=== PATIENT | male | born 1950 | race Caucasian/White ===

== ENCOUNTER 2020-10-10 12:06 | Outpatient (CLI) | payer OTHER ==
--- NOTE | 2020-10-10 13:04 | RAD ---
Exam: Cervical spine 3 views HISTORY: AP, open-mouth and lateral views cervical spine are submitted for interpretation Limited evaluation the cervical spine in lateral projection. Predental space is normal. No prevertebr al soft tissue swelling. Mild loss of disc space height at C5-C6. No obvious fractures. Limited evaluation odontoid process on the open-mouth projection. Lateral masses of C1 and C2 appear to be grossly unremarkable. In the AP projection, multilevel facet arthropathy. Old left rib fractures are noted. IMPRESSION: Incomplete evaluation of cervical spine. Mild degenerative disc disease at C5-C6.
--- NOTE | 2020-10-10 13:21 | RAD ---
THORACIC SPINE 3 VIEWS: Date: 10/10/2020 HISTORY: Back pain. FINDINGS: There are compression deformities of multiple mid thoracic vertebra with anterior wedging seen at the T5, T6, T7, T8, T9, and T12 levels. Anterior osteophytes. Posterior alignment is preserved. Osteopen ia. Compression deformities appear most severe at the T8 and T9 levels. IMPRESSION: Compression deformities of multiple mid and lower thoracic vertebra as described. POS: OFF
--- NOTE | 2020-10-10 13:29 | RAD ---
Exam: Lumbar spine 4 views HISTORY: Low back pain with bilateral sciatica leg pain and burning sensation both feet. FINDINGS: Five lumbar type vertebra. Lumbar spine vertebral body heights are maintained. No fracture. There is mild loss of vertebral body height at T12 with sclerosis of the superior endplate, favoring a chronic process. Atherosclerosis of a nonaneurysmal aorta. Visualized sacrum and bony pelvis are intact. Spondylolisthesis: L5-S1: 3 mm of anterolisthesis in the neutral position; 3.8 mm anterolisthesis upon extension; 4.5 mm anterolisthesis upon flexion. IMPRESSION: 1. Remote compression fracture at T12. 2. Grade 1 anterolisthesis of L5 upon S1. Transcribed Date/Time: 10/10/2020 1:41 PM
--- NOTE | 2020-10-10 15:26 | MRI ---
MR CERVICAL SPINE WITHOUT CONTRAST 10/10/20 INDICATION: History of neck pain and bilateral arm and shoulder pain. COMPARISON: Radiograph of the cervical spine dated 10/10/20. FINDINGS: Bone marrow signal intensity is within normal limits. The visualized posterior fossa appears within normal limits. Spinal alignment is within normal limits . Prevertebral soft tissues appear within normal limits. At C2-C3, there is moderate bilateral facet joint degenerative change with no appreciable central can al or neural foraminal narrowing. At C3-C4, there is a broad based bulge with uncovertebral hypertrophy inducing moderate to severe lef t and mild right neural foraminal narrowing. At C4-C5, there is a broad based bulge causing mild central canal narrowing without cord contact. The re is uncovertebral hypertrophy and facet joint degenerative change inducing moderate bilateral neura l foraminal narrowing. At C5-C6, there is a broad based disc bulge causing some mild central canal narrowing. There is uncov ertebral hypertrophy and facet joint degenerative change inducing moderate bilateral neural foraminal narrowing, right greater than left. At C6-C7, there is uncovertebral hypertrophy and facet joint degenerative change inducing mild bilate ral neural foraminal narrowing. At C7-T1, there is no appreciable central canal or neural foraminal narrowing. IMPRESSION: Moderate cervical spondylosis with multilevel neural foraminal narrowing. There is mild central canal narrowing at C4-5 and C5-6. POS: BH
--- NOTE | 2020-10-10 15:35 | MRI ---
MR OF THE THORACIC SPINE WITHOUT IV CONTRAST: 10/10/20 INDICATION: History of thoracic spine pain. COMPARISON: None. FINDINGS: The bone marrow signal intensity appears within normal limits. There are mild wedge compression fract ures of T5, T6, T7, T8, T9 and T12 that are chronic. No acute fracture is evident. There is a suspect ed syrinx within the central to right paracentral region of the spinal cord measuring 2.4 x 7 mm on i mage 49 of series 5 and image 8 of series 3. At this level, is a small central disc protrusion at T8- T9. No additional cord signal abnormality is evident. At the T1-T2 level, there is no appreciable central canal or neural foraminal narrowing. At T2-T3, there is no appreciable central canal or neural foraminal narrowing. At T3-T4, there is no appreciable central canal or neural foraminal narrowing. At T4-T5, there is no appreciable central canal or neural foraminal narrowing. At T5-T6, there is no appreciable central canal or neural foraminal narrowing. At T6-T7, there is no appreciable central canal or neural foraminal narrowing. At T7-T8, there is no appreciable central canal or neural foraminal narrowing. At T8-T9, there is a broad based bulge with a small central protrusion. There is a small syrinx withi n the spinal cord is seen at this level. At T9-T10, there is a small left paracentral protrusion but no appreciable central canal or neural fo raminal narrowing. At T10-T11, there is no appreciable central canal or neural foraminal narrowing. At T11-T12, there is a broad based disc bulge with facet hypertrophy on the left inducing severe left neural foraminal narrowing. At T12-L1, there is no appreciable central canal or neural foraminal narrowing. IMPRESSION: 1. Chronic wedge compression fracture from T5 through T9 and at T12 vertebral level. 2. Prominent central disc protrusion at T8-T9. There is a 2.4 x 7 mm syrinx within the spinal co rd at this level. 3. Severe left sided neural foraminal narrowing at T11-T12 due to a broad based disc bulge and f acet hypertrophy. POS: BH
--- NOTE | 2020-10-10 15:54 | MRI ---
MRI LUMBAR SPINE WITHOUT CONTRAT: Date: 10/10/2020 INDICATION: Bilateral leg sciatica and low back pain. COMPARISON: None. FINDINGS: There is a chronic wedge compression fracture of T12. There is a mild chronic superior end plate comp ression fracture of L1. No retropulsed bone fragments are demonstrated. Spinal alignment is within no rmal limits. Bone marrow signal intensity appears within normal limits. The visualized retroperitoneu m reveals no free fluid or enlarged lymph nodes. At L5-S1, there is moderate facet joint degenerative change, but no appreciable central canal or neur al foraminal narrowing. At L4-5, there is loss of disc space height, broad based disc bulge, and facet hypertrophy inducing m ild right and moderate left neural foraminal narrowing. At L3-4, there is a broad based bulge with facet hypertrophy and loss of disc space height inducing m oderate right and mild to moderate left neural foraminal narrowing. At L2-3, there is a broad based bulge and facet hypertrophy inducing mild bilateral neural foraminal narrowing. At L1-L2, there is no appreciable central canal or neural foraminal narrowing. At T12-L1, there is no appreciable central canal or neural foraminal narrowing. IMPRESSION: 1. Chronic wedge compression abnormalities involving T12 and L1. 2. Neural foraminal narrowing as above. POS: GI
== END 2020-10-10 12:07 | disposition home or self-care (01) ==
LOC: TBSIIMAG 12:06
PROVIDERS: ATTEND Surgery
DX: M54.16 Radiculopathy, lumbar region (principal); M54.2 Cervicalgia; M54.6 Pain in thoracic spine; M43.17 Spondylolisthesis, lumbosacral region; M43.8X4 Other specified deforming dorsopathies, thoracic region; M50.322 Other cervical disc degeneration at C5-C6 level; M48.061 Spinal stenosis, lumbar region without neurogenic claudication; M51.24 Other intervertebral disc displacement, thoracic region; M48.04 Spinal stenosis, thoracic region; M51.84 Other intervertebral disc disorders, thoracic region; M47.812 Spondylosis without myelopathy or radiculopathy, cervical region; M48.02 Spinal stenosis, cervical region; M48.54XD Collapsed vertebra, not elsewhere classified, thoracic region, subsequent encounter for fracture with routine healing
CPT/HCPCS: 72050; 72070; 72120; 72141; 72146; 72148